=== PATIENT | male | born 1960 | race Caucasian/White ===

== ENCOUNTER 2016-08-10 04:37 | Inpatient (IN) | payer OTHER, SELFPAY ==
--- NOTE | ~2016-08-10 | CT24 ---
[facility] A Service of [facility] & [facility] RADIOLOGY TEXT RESULTS PATIENT: RITA PASTRANA LOCATION: [place] [id number] : [birth year] UNIT #: [id number] AGE: [address]: Rianna Sanchez MD SEX: M ORDER DR: [id number] [place] [id number] [facility]. [place], [place] [address] [id number] I MR#: [id number] Acc #: [id number] NAME: RITA PASTRANA : 1960 SEX: M STUDY DATE/TIME: 08/10/2016 4:50 UNIT: [facility] ROOM: [facility] STUDY DESCRIPTION: CT Angio Neck Stroke Attending Physician: Rianna Sanchez M.D. Ordering Physician: Huan Solano M.D. Primary Care Physician: Gabriel Aguero M.D. MEDICAL IMAGING REPORT This report is preliminary unless electronic signature is present EXAM CTA neck. FINDINGS Result text under order number [id number]. Please see this order for result text. Dictated by... Valentín Martinez M.D. THIS IS AN ELECTRONICALLY VERIFIED REPORT Valentín Martinez M.D. at 08/10/2016 4:41 PM REGINALDO/katharina TD: 08/10/2016 10:36 JOB #: [id number] MEDICAL IMAGING REPORT COPY
--- NOTE | ~2016-08-10 | CT72 ---
[facility] A Service of [facility] RADIOLOGY TEXT RESULTS PATIENT: RITA PASTRANA LOCATION: [facility] 317-01 : [birth year] UNIT #: [id number] AGE: [address]: Rianna Sanchez MD SEX: M ORDER DR: [id number] [place] [id number] [facility]. [place], [place] [address] [id number] I MR#: [id number] Acc #: [id number] NAME: RITA PASTRANA : 1960 SEX: M STUDY DATE/TIME: 08/10/2016 4:43 UNIT: [facility] ROOM: [facility] STUDY DESCRIPTION: CT Head Wo Contrast Stroke Attending Physician: Rianna Sanchez M.D. Ordering Physician: Huan Solano M.D. Primary Care Physician: Gabriel Aguero M.D. MEDICAL IMAGING REPORT This report is preliminary unless electronic signature is present EXAM CT head without IV contrast COMPARISON March 30, 2016 INDICATION 56-year-old male with left-sided weakness for 2 hours. History of hypertension. FINDINGS Mastoid air cells, middle ears and visualized paranasal sinuses are well-aerated. No acute fracture or suspicious osseous lesion. Minimal calcifications of the cavernous internal carotid arteries. Normal cerebral volume. No mass effect. No abnormal extraaxial fluid collection. No acute intracranial hemorrhage. No evidence of acute ischemia. There are chronic infarcts involving the cortex and the underlying white matter in the right frontal and parietal lobes. These are very small and focal in nature. IMPRESSION 1. No acute intracranial abnormality. Normal cerebral volume. 2. Evolved now chronic infarcts of the right frontal and parietal cortex, focal in nature. Dictated by... Gamal Chan M.D. THIS IS AN ELECTRONICALLY VERIFIED REPORT Gamal Chan M.D. at 08/15/2016 8:47 PM Natacha TD: 08/10/2016 09:38 [facility] A Service [facility] RADIOLOGY TEXT RESULTS PATIENT: RITA PASTRANA LOCATION: [facility] 317-[id number] [birth year] UNIT #: [id number] AGE: [address]: Rianna Sanchez MD SEX: M ORDER DR: JOB #: [id number] MEDICAL IMAGING REPORT COPY
--- NOTE | ~2016-08-10 | CT71 ---
[facility] A Service of [facility] & [facility] RADIOLOGY TEXT RESULTS PATIENT: RITA PASTRANA LOCATION: [address]16 : [birth year] UNIT #: [id number] AGE: [address]: Rianna Sanchez MD SEX: M ORDER DR: [id number] [facility] [address] [place], [place] [address] [id number] I MR#: [id number] Acc #: [id number] NAME: RITA PASTRANA : 1960 SEX: M STUDY DATE/TIME: 08/10/2016 11:09 UNIT: [facility] ROOM: [facility] STUDY DESCRIPTION: CT Head Wo Contrast Attending Physician: Rianna Sanchez M.D. Ordering Physician: Estephania Ugalde A.P.R.N. Primary Care Physician: Gabriel Aguero M.D. MEDICAL IMAGING REPORT This report is preliminary unless electronic signature is present EXAM CT head 08/10/2016 HISTORY Weakness left arm, leg discomfort, started 0200 hours today. Condition worsening, extremely restless, increased headache, increased confusion, combative, unable to lay still. TECHNIQUE CT head performed skull base through vertex without intravenous contrast. This CT exam was performed with one or more of the following radiation dose reduction techniques: automatic exposure control, adjustment of mA and/or kV according to patient size, and iterative reconstruction. FINDINGS Brainstem unremarkable. Cerebellum and cerebral hemispheres show normal overall jacques matter - white matter differentiation. There is no clear indication of acute cortical ischemia and there is no indication of hemorrhage. Focal area of encephalomalacic change in the anterior-superior right frontal lobe is stable and felt to reflect sequelae of remote vascular insult. Encephalomalacic change at the right paracentral parietal vertex felt to reflect old vascular insult. These changes are stable compared to earlier today. The midline structures are nondisplaced. The basal ganglia are intact. Ventricles, cisterns and sulci within normal limits of size and contour overall. Patient underwent CT angiography neck and head earlier today. See that study for further assessment. There is some residual contrast within the vascular structures. The intraorbital soft tissues unremarkable. The visualized paranasal sinuses and mastoid air cells are clear. No fracture. IMPRESSION 1. No change in appearance of brain from study performed earlier today. No clearly acute abnormality is seen. No hemorrhage. No clear STS. [facility] A Service of [facility] RADIOLOGY TEXT RESULTS PATIENT: RITA PASTRANA LOCATION: [address] : [birth year] UNIT #: [id number] AGE: [address]: Rianna Sanchez MD SEX: M ORDER DR: indication of acute cortical ischemia. Records in DR PACS System indicate patient scheduled for MRI brain. Please see that study for further assessment. 2. Areas of chronic ischemic change in the right frontal and parietal lobes as described above. No change from prior examination. Dictated by... Andreas Kohli M.D. THIS IS AN ELECTRONICALLY VERIFIED REPORT Andreas Kohli M.D. at 08/11/2016 11:43 AM TROY/dayana TD: 08/10/2016 14:14 JOB #: [id number] MEDICAL IMAGING REPORT COPY
--- NOTE | ~2016-08-10 | MR18 ---
[facility] A Service of [facility] RADIOLOGY TEXT RESULTS PATIENT: RITA PASTRANA LOCATION: [facility] 317-01 : [birth year] UNIT #: [id number] AGE: [address]: Rianna Sanchez MD SEX: M ORDER DR: [id number] [facility] [address] [place], [place] [address] [id number] I MR#: [id number] Acc #: [id number] NAME: RITA PASTRANA : 1960 SEX: M STUDY DATE/TIME: 08/11/2016 19:42 UNIT: [facility] ROOM: [facility] STUDY DESCRIPTION: MR Brain Wo Contrast Attending Physician: Rianna Sanchez M.D. Ordering Physician: Adama Langston M.D. Primary Care Physician: Gabriel Aguero M.D. MRI CENTER REPORT This report is preliminary unless electronic signature is present. EXAM Limited brain MRI. DATE OF EXAM 08/11/2016 HISTORY Claustrophobia. Left arm and leg weakness. COMPARISON Head CT same date. FINDINGS Limited study with only diffusion images. There are areas of ischemia in the right frontal cortex, somewhat patchy, possibly indicating small emboli, and possibly indicating a watershed zone infarct. These are nonhemorrhagic and there is minimal local mass effect. These correspond fairly well to the abnormalities seen on CT. There is no contralateral acute ischemia or cerebellar abnormality. IMPRESSION Limited study shows what are grossly nonhemorrhagic, small areas of acute ischemia in the right frontal region and a lesser degree in the right parietal subcortical region. They may simply be watershed zone infarcts, but could be small peripheral emboli. They are nonhemorrhagic and there is no contralateral abnormality. They correspond well to the findings on CT. Dictated by... Adrián Chen M.D. [facility] A Service of [facility] RADIOLOGY TEXT RESULTS PATIENT: RITA PASTRANA LOCATION: [facility] 317-01 : [birth year] UNIT #: [id number] AGE: [address]: Rianna Sanchez MD SEX: M ORDER DR: THIS IS AN ELECTRONICALLY VERIFIED REPORT Adrián Chen M.D. at 08/15/2016 4:33 PM LACY/mandi TD: 08/12/2016 00:36 JOB #: [id number] MRI CENTER REPORT COPY
--- NOTE | ~2016-08-10 | CO ---
Unit #: [id number] #: [id number] Patient: RITA PASTRANA [id number] [facility] [address] [place] [address] [facility]. [place], [place] [address] [id number] I MR#: [id number] NAME: RITA PASTRANA ROOM: [facility] Age: 56 Sex: M Admission Date: 08/10/2016 : 1960 Attending Physician: Rianna Sanchez M.D. Primary Care Physician: Gabriel Aguero M.D. Consultation Date: 08/10/2016 CONSULTATION REPORT CONSULTING PHYSICIAN Dr. Solano with code stroke protocol. PATIENT IDENTIFICATION This is a 56-year-old, right-handed, male evaluated in ICU room 16, at [facility]. SOURCE OF INFORMATION Obtained from the patient as well as the medical record. HISTORY OF PRESENT ILLNESS This is a 56-year-old, right-handed, male with a past medical history of CAD with history of myocardial infarction, history of CVA, hypertension, and hyperlipidemia as well as tobacco use who presented to [facility] with report of left-sided weakness and pain with sudden onset around 2:30 in the morning. Patient apparently was having trouble sleeping. He was awake and noticed suddenly that his left arm and left leg were numb and he was having difficulty using his arm and leg. He presented about an hour and a half later at [facility] for further evaluation and a code stroke was initiated and the patient received IV alteplase for possible acute stroke. Patient was seen via telemedicine by Dr. Langston and he discussed the case with Dr. Solano at the time of acute treatment. Patient has been seen multiple times today by our service. Initially, this morning, his NIH appeared to be higher with NIH of 5 compared to a NIH of 2 done by nursing at shift change. Thus, we sent the patient for a stat CT of the head, which was negative for any acute intracranial abnormality. The patient completed his alteplase with no complications. He has complained of a headache since he has been here. He states, however, around the time he went down for a CT scan, he became very anxious. He, upon return, continued to be anxious and somewhat combative and has been that way since he became more awake this morning. Dr. Higgins has been consulted and he has been put on p.r.n. Ativan and SEROquel by the hospitalist physician. We have attempted a MRI of the brain unsuccessfully with repeated doses of sedation. The patient is severely claustrophobic and becomes combative when attempting MR imaging. His symptoms have improved somewhat though he still has some mild left-sided deficit and mild facial asymmetry. He has dysarthria currently, but is also sedated. It improves whenever he is not sedated. Initial CT angiogram of the head and neck done on 08/10/16 whenever he came to the ER shows sadz-bu-fcboujoh vessel wall irregularity prominent in the anterior cerebral arteries. This could reflect either atherosclerotic disease or vasospasm. No evidence of carotid bifurcation disease. No evidence of aneurysm or major branch vessel occlusion intracranially. Imaging has been reviewed and discussed with Dr. Langston Unit #: [id number] #: [id number] Patient: RITA PASTRANA at the time of evaluation. Patient is unable to provide much in the way of review of systems currently as he is sedated. He complained earlier of a headache. Since he has been here, he has had repeat imaging since then and it was negative for any bleeding. Otherwise, pertinent positives for review of systems include left-sided numbness and weakness and dysarthria. He denies any chest pain, shortness of air, palpitations, nausea, vomiting, abdominal pain, bruising or bleeding, vision changes, swallowing difficulty, aphasia, loss of consciousness or loss of awareness, or any seizure activity. PAST MEDICAL HISTORY 1. CAD with prior history of myocardial infarction. He had a cardiac catheterization done in 2013 that was done for recurrent chest pain. He was diagnosed with uncontrolled hypertension, noncardiac chest pain, and angiographically normal coronary arteries and normal left ventricular systolic function. He underwent a cath on October 21, 2013, at that time. He was seen by neurology at that time for abnormal head CT; however, it was felt to be artifact. 2. Injury to the left ankle requiring ORIF x2. 3. Hyperlipidemia. 4. COPD. 5. Medication noncompliance. 6. Left ventricular ejection fraction of 50% to 55% on cardiac catheterization in 2012 and the same in 2013 on his cardiac cath. 7. Tobacco use. 8. CVA in March of 2016. He does have chronic infarcts seen in the right cortex on CT imaging upon arrival that appear chronic. FAMILY HISTORY Positive for CAD and diabetes. SOCIAL HISTORY He lives with his . He smokes one pack per day of tobacco. No reported alcohol use or illicit drug use. He uses a cane at baseline according to the patient, but is independent otherwise with his ADLs. MEDICATIONS Home medications have not been fully reconciled at this time. ALLERGIES No known drug allergies. REVIEW OF SYSTEMS Twelve-point review of systems attempted. Pertinent positives are as above, otherwise negative. PHYSICAL EXAMINATION VITAL SIGNS: Temperature 98 (he has been afebrile), pulse 77, respirations 18, blood pressure 142/92 (he is on a Cardene drip), and oxygen saturation 93%. He was placed on a Cardene drip in the ED due to elevated blood pressure greater than 180/105 after receiving alteplase. Oxygen saturation 96% on 2 liters nasal cannula. Height 63 inches, weight 248 pounds, and BMI 31. NEUROLOGIC: Patient initially this morning had a NIH of 5. When I evaluated him, he was drowsy and had dysarthria and had a left arm and left leg droop. He has no sensory abnormalities on exam. Very mild left-sided weakness. Had decreased level of consciousness; however, now he is sedated so obviously has an affected level of consciousness. He Unit #: [id number] #: [id number] Patient: RITA PASTRANA seems stronger. Facial droop is less prominent, very mild asymmetry. He becomes combative, agitated, and restless throughout the day and has required multiple anxiety/sedating medications. He is being seen by psychiatry. He does follow commands when he is awake and stimulated, but he is restless. His speech is dysarthric, but he is sedated currently. When he is more awake, he is less dysarthric. He has no aphasia or apraxia. CRANIAL NERVES: He demonstrates full chao of vision. Eyes are conjugate without ptosis or nystagmus. Extraocular movements are intact. Sensation of the face and scalp is intact. Strength of muscles of facial expression does reveal mild asymmetry of the left side of the face with mildly flattened nasal labial fold. Hearing is intact to conversation. Tongue is midline. Uvula is midline. Palate elevation is normal. Head turning and shoulder shrug are unremarkable. NECK: Supple. MOTOR: As discussed above. SENSORY: As discussed above. No deficits. He can differentiate between soft touch and pinprick sensation and has no extinction. Gait and Romberg deferred. COORDINATION: He has no past-pointing. No cerebellar signs. DIAGNOSTIC STUDIES IMAGING: Initial CT of the head without contrast on 08/10/16: No acute intracranial abnormality. Normal cerebral volume. Evolved now chronic infarcts of the right frontal and parietal cortex, focal in nature. CT angiogram of the head and neck as discussed above. Repeat CT of the head without contrast on 08/10/16 after alteplase show no change in appearance of brain from study performed earlier today. No clearly acute abnormality seen. No hemorrhage. No clear indication of acute cortical ischemia. Areas of chronic ischemic changes in the right frontal and parietal lobes as described in the full body of the report. No change from prior exam. Chest x-ray, portable single view on 08/10/16: No active disease. CARDIOVASCULAR: EKG done in the ED: Normal sinus rhythm. Ventricular rate of 96 beats per minute. LABORATORY: Initial CBC unremarkable. Troponin less than 0.05. BMP unremarkable, other than a glucose of 111. PT 10, INR 1, and PTT 25.5. IMPRESSION 1. Clinical concern for possible new ischemic CVA, though concern for change in mental status and must then consider other differential diagnoses. Must consider MARIO infarct versus subcortical infarct. Consider non-neurologic etiologies for mental status changes; however, the patient did present with focal findings. 2. History of CVA. 3. Hypertension. Continue Cardene drip to maintain blood pressure less than 180/105 after receiving IV alteplase in our ED. 4. MARIO atherosclerosis. 5. Mental status changes/anxiety. Psychiatry following. Nothing currently to suggest CLINICAL TRANSFORMATION SPECIALIST infectious etiology or seizure activity. 6. Medication noncompliance. 7. History of CAD. Unit #: [id number] #: [id number] Patient: RITA PASTRANA Patient was unable to successfully complete MRI imaging despite repeated doses of Ativan. He is being monitored closely in the ICU. He is on Cardene drip and stroke workup has been initiated. A repeat CT of the head in 24 hours post alteplase, early tomorrow morning, and, at that time, we will start the patient on antiplatelet therapy pending negative CT scan and will attempt MRI if possible. May have to consider large bore MRI at another facility. Patient discussed with Dr. Langston who has seen the patient as well today and he agrees with above. Please call for any questions or issues. We thank you very much for allowing us to assist in the care of this patient. Dictated by... Estephania Ugalde A.P.R.N. for Radha Dewey/kervin TD: 08/11/2016 11:58 JOB #: [id number] CONSULTATION REPORT X Estephania Ugalde APRN X CONSULTATION REPORT
--- NOTE | ~2016-08-10 | DS ---
Unit #: [id number] #: [id number] Patient: RITA PASTRANA [id number] [address] [place], [place] [address] [id number] I MR#: [id number] NAME: RITA PASTRANA ROOM: 317 Age: 56 Sex: M Admission Date: 08/10/2016 : 1960 Discharge Date: 08/12/2016 Attending Physician: Rianna Sanchez M.D. Primary Care Physician: Gabriel Aguero M.D. DISCHARGE SUMMARY REASON FOR ADMISSION Left lower extremity weakness, left upper extremity weakness/concern for possible underlying CVA. HISTORY OF PRESENT ILLNESS/HOSPITAL COURSE The patient is a very pleasant 56-year-old male with prior hospital admission in 2013 with questionable compliance with some of his medications secondary to poor outpatient followup in regard to primary care. Presented after he became concerned for possible underlying CVA while he was lying down at home. He was initially evaluated in the emergency room. After review and discussion with neurology service, the patient received TPA. Subsequently, secondary to TPA he was admitted to the ICU and subsequently was placed on routine TPA protocol. Consultation was placed to neurology service who continued to follow the patient through his hospital course, as well as Dr. Marroquin for intensive care. The patient underwent appropriate speech therapy evaluation, which was otherwise unremarkable. He did have accelerated hypertension on day of admission. He was placed on a Cardene drip with appropriate parameters. On day one of admission he also demonstrated increased anxiety, as well as anger issues, and we did consult Dr. Higgins of psychiatry service. He was given Ativan, as well as Haldol, on several occasions. He does have a prior history of underlying generalized anxiety. We attempted initially MRI of brain. Unfortunately, secondary to claustrophobia, he was unable to complete. We subsequently gave the patient appropriate sedative medications, and he underwent an MRI brain on 08/11/2016, which did reveal multiple ischemic areas. He did have CTA of head without contrast, which was otherwise unremarkable. At the present time physical and occupational therapy services have both seen and evaluated the patient. He does not have any acute motor deficits at the present time. He did undergo a MARGARETH by Dr. Beltran of cardiology service, which did reveal rxbn-ia-xmpzbkdt amount of atherosclerosis in the aorta. No PFO. No vegetations were noted. Ejection fraction was noted to be 60%. At this point in time he is stable to be discharged home. He tells me that he will be following up with Dr. Libra Crawley at [facility] Unit #: [id number] #: [id number] Patient: RITA PASTRANA on August 15, 2016. He has had elevated blood pressure through his hospital course here. He has been started on several blood pressure medications, and I have asked him to follow up with his PCP, not only for blood pressure management, but as well as for appropriate hospital followup. After review of MRI, as well as history, decision has been made for Lovenox bridge to therapeutic Coumadin. He will be given a prescription for Coumadin 5 mg on a daily basis. I have given a prescription for Lovenox 100 mg subcu b.i.d. Will have home health service follow him at time of discharge as well. In regard to his generalized anxiety, as well as likely noncompliance issues, I have asked him to try to follow up on a more often basis with his primary care physician and to discuss the possibility of starting on antianxiety/antidepressant medications, which may be resumed and/or started as an outpatient. At the present time, the time of discharge, he is very cooperative. He states that he will try his best moving forward. DIAGNOSTIC STUDIES LABORATORY STUDIES AT TIME OF DISCHARGE: LDL 120, HDL 38, total cholesterol 186. Hemoglobin is 16.2. Creatinine level is normal. TSH was assessed at 4.68 this hospital admission. Hemoglobin A1C was 5.5%. FINAL DISCHARGE DIAGNOSES 1. Acute cerebrovascular accident. 2. Left upper and lower extremity weakness. Deficits now resolving. 3. Status post tissue plasminogen activator administration in the emergency room. 4. Accelerated hypertension. 5. History of noncompliance. 6. Hyperlipidemia. 7. Vitamin B12 deficiency with B12 level of 176 this hospital admission. 8. Prior history of gastroesophageal reflux disease. FINAL DISCHARGE MEDICATIONS 1. Norvasc 10 mg p.o. daily. 2. Lopressor 25 mg p.o. b.i.d. 3. Lipitor 40 mg p.o. q.h.s. 4. Lisinopril 20 mg p.o. daily. 5. Protonix 40 mg p.o. daily. 6. Slek-nhx-gzzljwl sublingual vitamin B12 - 2,000 mcg p.o. daily. 7. Coumadin 5 mg p.o. daily. 8. Lovenox 100 mg subcu b.i.d. x5 days. Discontinue Lovenox when INR is greater than 2. Home health services to check PT-INR on a q.48 hour basis. DISCHARGE CONDITION Stable. DISCHARGE DISPOSITION Home. FOLLOW UP Follow up with primary care physician as detailed above. NOTE: Time - 55 minutes. Unit #: [id number] #: [id number] Patient: RITA PASTRANA Dictated by... Radha Shanks/luiz TD: 08/12/2016 11:51 JOB #: [id number] DISCHARGE SUMMARY X Rianna Sanchez MD X DISCHARGE SUMMARY
--- NOTE | ~2016-08-10 | EKG ---
PATIENT: RITA PASTRANA UNIT #: [id number] Ventricular Rate: 96 BPM Atrial Rate: 96 BPM P-R Interval: 160 ms QRS Duration: 96 ms Q-T Interval: 388 ms QTC Calculation(Bezet): 490 ms P [place]: 63 degrees Calculated R [place]: 48 degrees Calculated T [place]: 68 degrees Diagnosis Line: Normal sinus rhythm Diagnosis Line: Nonspecific T wave abnormality Diagnosis Line: Prolonged QT Diagnosis Line: Abnormal ECG Diagnosis Line: When compared with ECG of 27-APR-2016 13:06, Diagnosis Line: Vent. rate has increased BY 36 BPM Diagnosis Line: QT has lengthened Diagnosis Line: Confirmed by NELLY CALDWELL MD ([id number]) on 08/11/2016 Diagnosis Line: 11:15:20 AM INTERPRETING MD: JAVI GARZA
--- NOTE | ~2016-08-10 | CR72 ---
[facility] A Service of [facility] & [facility] RADIOLOGY TEXT RESULTS PATIENT: RITA PASTRANA LOCATION: [facility] 317- : [birth year] UNIT #: [id number] AGE: [address]: Rianna Sanchez MD SEX: M ORDER DR: [id number] [facility] [address] [facility]. [place], [place] [address] [id number] I MR#: [id number] Acc #: [id number] NAME: RITA PASTRANA : 1960 SEX: M STUDY DATE/TIME: 08/12/2016 5:23 UNIT: [address] ROOM: [facility] STUDY DESCRIPTION: CR Chest Single View Portable Attending Physician: Rianna Sanchez M.D. Ordering Physician: Erik Marroquin M.D. Primary Care Physician: Gabriel Aguero M.D. MEDICAL IMAGING REPORT This report is preliminary unless electronic signature is present EXAM AP portable chest, 08/12/2016 at 05:23 HISTORY 56-year-old male with left side chest pain, left arm and left leg pain. COPD. Symptoms began 08/10/2016. COMPARISON AP portable chest, 08/11/2016 at 05:21 FINDINGS Left costophrenic angle is not completely included in the imaging field of view. No acute airspace disease is identified. Heart size is within normal limits. No pleural effusion or pneumothorax is evident. No acute osseous abnormality. IMPRESSION No acute chest findings. Left costophrenic angle not completely included in the field of view. Dictated by... Rachael Spangler M.D. THIS IS AN ELECTRONICALLY VERIFIED REPORT Rachael Spangler M.D. at 08/14/2016 7:02 PM YAQUELIN/josé TD: 08/12/2016 09:57 JOB #: [id number] MEDICAL IMAGING REPORT COPY
--- NOTE | ~2016-08-10 | CO ---
Unit #: [id number] #: [id number] Patient: RITA PASTRANA [id number] [facility] [address] [facility]. [place], [place] [address] [id number] I MR#: [id number] NAME: RITA PASTRANA ROOM: 317 Age: 56 Sex: M Admission Date: 08/10/2016 : 1960 Attending Physician: Rianna Sanchez M.D. Primary Care Physician: Gabriel Aguero M.D. Consultation Date: 08/10/2016 CONSULTATION REPORT REASON FOR CONSULTATION Confusion, agitation. HISTORY OF PRESENT ILLNESS Mr. Dela Cruz is a 56-year-old male, seen on 08/10/2016 in ICU bed 16 at [facility] due to confusion and agitation. The patient became extremely anxious and agitated and was given Ativan 0.5 mg IV. The patient was admitted with symptoms of stroke. The patient had left lower extremity weakness and pain. The patient was given tPA. The patient was evaluated by Neurology Services. The patient was lying in bed, seems restless, anxious, confused, unable to give any reliable information. The patient's was at the bedside that she reported the patient has a history of anxiety and depression, but denied any treatment. The patient was unable to give any reliable information. PAST PSYCHIATRIC HISTORY Remarkable for history of anxiety and depression. No history of any treatment. PAST MEDICAL HISTORY History of cardiac disease in 2013, hypertension, noncompliant, history of TIA/CVA. MEDICATIONS The patient is currently on Lipitor, Protonix, Plavix, Norvasc, Lopressor, Ativan p.r.n., NovoLog. Please refer to H and P for detail. FAMILY HISTORY AND SOCIAL HISTORY The patient has a good support system from his . No history of any abuse. History of alcohol abuse, but none recently. REVIEW OF SYSTEMS Complete review of systems is unremarkable except for confusion and agitation. MENTAL STATUS EXAMINATION General appearance; the patient dressed in hospital attire, lying comfortably, somewhat anxious in ICU bed 16. Attention span and concentration, poor. Speech, disorganized. Orientation, unable to assess. Mood and affect, labile. Thought process and thought content, disorganized. Recent and remote memory, poor. Language, unable to assess. Fund of knowledge, unable to assess. Insight and judgment, impaired. Unit #: [id number] #: [id number] Patient: RITA PASTRANA DIAGNOSES Psychiatric: Delirium, F05; agoraphobia with panic disorder, F40.01. Secondary diagnosis: Deferred. Medical diagnosis: Please refer to H and P. Stressors: Psychosocial stressor. ASSESSMENT/PLAN 1. Supportive psychotherapy and psychoeducation provided to the patient's family. The patient is unable to comprehend much. 2. I advised to continue with p.r.n. Ativan at this time and if needed, consider alternative medication. We will continue to follow. Please feel free to call if any questions telephone #[phone]. Dictated by... Radha Dowling/lauro TD: 08/12/2016 06:57 JOB #: [id number] CONSULTATION REPORT X Barron Higgins MD X CONSULTATION REPORT
--- NOTE | ~2016-08-10 | CR72 ---
[facility] A Service of [facility] & [facility] RADIOLOGY TEXT RESULTS PATIENT: RITA PASTRANA LOCATION: [address]16 : [birth year] UNIT #: [id number] AGE: [address]: Rianna Sanchez MD SEX: M ORDER DR: [id number] [facility] [address] [facility]. [place], [place] [address] [id number] I MR#: [id number] Acc #: [id number] NAME: RITA PASTRANA : 1960 SEX: M STUDY DATE/TIME: 08/11/2016 5:21 UNIT: [facility] ROOM: [facility] STUDY DESCRIPTION: CR Chest Single View Portable Attending Physician: Rianna Sanchez M.D. Ordering Physician: Erik Marroquin M.D. Primary Care Physician: Gabriel Aguero M.D. MEDICAL IMAGING REPORT This report is preliminary unless electronic signature is present EXAM Portable chest HISTORY COPD, left arm and chest pain since 08/10/2016. COMPARISON 08/10/2016. FINDINGS Portable view of the chest demonstrates improved lung volumes. No focal airspace disease or consolidation. No effusions. Heart size within normal limits. Mild prominence of the pulmonary interstitium could represent background fibrosis though a component of interstitial edema not excluded as this appears improved from the 08/10/2016 study. Of course, this could be on the basis of improved lung volumes. Diffuse aortic atherosclerotic changes. No invasive tubes or lines. No visible pneumothorax. Dictated by... Virginia Roberto M.D. THIS IS AN ELECTRONICALLY VERIFIED REPORT Virginia Roberto M.D. at 08/11/2016 8:10 AM MATT/attila TD: 08/11/2016 07:52 JOB #: [id number] MEDICAL IMAGING REPORT COPY
--- NOTE | ~2016-08-10 | CR72 ---
[facility] A Service of [facility] & [facility] RADIOLOGY TEXT RESULTS PATIENT: RITA PASTRANA LOCATION: [address]-16 : [birth year] UNIT #: [id number] AGE: [address]: Rianna Sanchez MD SEX: M ORDER DR: [id number] [facility] [address] [facility]. [place], [place] [address] [id number] I MR#: [id number] Acc #: [id number] NAME: RITA PASTRANA : 1960 SEX: M STUDY DATE/TIME: 08/10/2016 12:16 UNIT: [facility] ROOM: [facility] STUDY DESCRIPTION: CR Chest Single View Portable Attending Physician: Rianna Sanchez M.D. Ordering Physician: Adama Langston M.D. Primary Care Physician: Gabriel Aguero M.D. MEDICAL IMAGING REPORT This report is preliminary unless electronic signature is present EXAM Portable chest, 08/10 INDICATION Left arm and chest pain today. FINDINGS AP portable chest is compared with 01/19/2014. Cardiac and mediastinal contours are normal. Lungs are clear. No pneumothorax. IMPRESSION No active disease. Dictated by... Valentín Bell Jr., M.D. THIS IS AN ELECTRONICALLY VERIFIED REPORT Valentín Bell Jr., M.D. at 08/10/2016 2:59 PM MILLA/josé TD: 08/10/2016 14:54 JOB #: [id number] MEDICAL IMAGING REPORT COPY
--- NOTE | ~2016-08-10 | HP ---
Unit #: [id number] #: [id number] Patient: RITA PASTRANA [id number] [address] [place], [place] [address] [id number] I MR#: [id number] NAME: RITA PASTRANA ROOM: [facility] Age: 56 Sex: M Admission Date: 08/10/2016 : 1960 Attending Physician: Rianna Sanchez M.D. Primary Care Physician: Gabriel Aguero M.D. HISTORY AND PHYSICAL REASON FOR ADMISSION Left lower extremity weakness, left upper extremity weakness/pain; patient concerned for possible CVA. HISTORY OF PRESENT ILLNESS The patient is a 56-year-old male with a prior hospital admission in 2013 secondary to chest pain and underwent cardiac catheterization at that time. Per report, he is relatively noncompliant with his medications; however, he states at the present time he has been taking them as prescribed. Presented after he noticed an approximately 1-hour history of left lower extremity and left arm weakness and/or tingling. He presented to the emergency room within the appropriate window for TPA. He was evaluated by neurology service and received TPA. While in the emergency room his initial CT head was negative, but concerning for his clinical picture TPA was administered. The patient is currently being evaluated in the ICU. At the present time he states that he feels well. He is having return of sensation of his left side. He states that he feels much better. A repeat CT head was ordered by neurology secondary to decreased mentation, as well as grogginess. That repeat CT is currently pending. MRI was attempted; however, the patient became quite agitated and claustrophobic. He stated that felt very angry and he refused. Initial laboratory studies performed in the emergency department include a BMP, which was relatively unremarkable. Hepatitic panel was also negative. CBC showed a hemoglobin 15.4. PAST MEDICAL HISTORY 1. Cardiac disease with prior history of myocardial infarction and prior history of cardiac catheterization in 2013. Negative per report. 2. Hypertension, noncompliant. 3. Prior history of TIA/CVA, I believe, March 2016. PAST SURGICAL HISTORY Catheterization. CURRENT HOME MEDICATIONS List is being verified, including blood pressure medications. The patient states he is taking them; however, previous records indicate that he has history of noncompliance FAMILY HISTORY Unit #: [id number] #: [id number] Patient: RITA PASTRANA Positive for coronary artery disease, diabetes. SOCIAL HISTORY Smokes 1 pack of cigarettes per day. No alcohol use. He denies any illicit drug use. REVIEW OF SYSTEMS Please see HPI. A 12-point review, otherwise, is negative except for those positively noted in the HPI. PHYSICAL EXAMINATION VITAL SIGNS: Temperature 98, pulse 77, respiratory rate 18, blood pressure 142/92. GENERAL APPEARANCE: The patient is a 56-year-old male sitting on the side of the bed comfortably, no acute distress. HEAD EXAM: Atraumatic, normocephalic. EAR EXAM: Tympanic membranes do not reveal any erythema or injection. NECK: Supple. CVS EXAM: S1, S2 were audible without murmur. RESPIRATORY EXAM: Clear with prolonged expiratory. Coarse breath sounds noted. GI/ABDOMEN: Distention noted but nontender. LOWER EXTREMITY EXAM: No evidence of any lower extremity edema. NEUROLOGIC: The patient is alert and oriented x3. On cranial nerve exam, as well as neurological exam the patient is slightly weaker on the left side as compared to the right. DIAGNOSTIC STUDIES LABORATORY STUDIES: As stated above. IMAGING: Head CT - No acute process. INITIAL ADMISSION DIAGNOSES 1. Probable CVA with resultant left-sided weakness/concern for right hemispheric subcortical stroke. 2. Status post TPA/alteplase in emergency room. 3. Hypertensive urgency, currently on Cardene drip. 4. Prior history of CVA, March 2016. 5. Prior history of medication noncompliance. PLAN 1. Admission ICU. 2. Neurology consultation. 3. Stroke protocol. 4. TPA protocol. 5. Repeat CT currently pending. 6. Patient does have increased agitation, as well as anxiety. 7. Nicotine patch will used, as well as Ativan administered. 8. The patient may ultimately require psychiatric evaluation. 9. Urine tox screen will also be administered. 10. Speech therapy to evaluate swallowing mechanism. 11. Further hospital course to follow. Dictated by Rianna Sanchez M.D. Unit #: [id number] #: [id number] Patient: RITA PASTRANA ISN/db TD: 08/10/2016 12:40 JOB #: [id number] HISTORY AND PHYSICAL X Rianna Sanchez MD HISTORY AND PHYSICAL
--- NOTE | ~2016-08-10 | CT71 ---
[facility] A Service of [facility] & [facility] RADIOLOGY TEXT RESULTS PATIENT: RITA PASTRANA LOCATION: [facility] 317-01 : [birth year] UNIT #: [id number] AGE: [address]: Rianna Sanchez MD SEX: M ORDER DR: [id number] [facility] [address] [facility]. [place], [place] [address] [id number] I MR#: [id number] Acc #: [id number] NAME: RITA PASTRANA : 1960 SEX: M STUDY DATE/TIME: 08/11/2016 4:50 UNIT: [id number] ROOM: [facility] STUDY DESCRIPTION: CT Head Wo Contrast Attending Physician: Rianna Sanchez M.D. Ordering Physician: Adama Langston M.D. Primary Care Physician: Gabriel Aguero M.D. MEDICAL IMAGING REPORT This report is preliminary unless electronic signature is present EXAM CT head without IV contrast COMPARISON August 10, 2016. 56-year-old male with left-sided weakness since yesterday, now post TPA. Follow up after TPA. FINDINGS Minimal mucosal thickening of the left maxillary sinus and ethmoid air cells. No acute fractures or suspicious osseous lesions. Normal cerebral volume. No mass effect. No acute intracranial hemorrhage. Stable areas of chronic ischemia in the right frontoparietal cortex and within the anterior right lateral frontal cortex. No evidence of acute ischemia. IMPRESSION 1. No acute intracranial abnormality. No change from head CT of yesterday. 2. Stable chronic ischemic changes in the right frontal and parietal lobes. Dictated by... Gamal Chan M.D. THIS IS AN ELECTRONICALLY VERIFIED REPORT Gamal Chan M.D. at 08/16/2016 7:39 AM Adenike TD: 08/11/2016 06:59 JOB #: [id number] MEDICAL IMAGING REPORT COPY
--- NOTE | ~2016-08-10 | A ---
[facility] Nutrition Therapy DATE: 08/11/16 Patient: RITA PASTRANA Physician: HAM [facility] [address] Room/Bed: [address], Zip: [place] [address] Admit Date: 08/10/16 Date of : [birth year] Height: 6 3 Weight: 239 108.5 NUTRITIONAL ASSESSMENT: REASON: Stroke protocol consult 56 yo male admitted for stroke PMH: OR, cardiac cath, HTN, CVA/TIA Anthropometrics: Ht: 6'1" Wt: 108.5 kg BMI: 31.6 Diet: Heart healthy Assessment: Chart reviewed, events noted. Pt admitted for stroke, and RD consulted for stroke protocol. Pt has passed EQUITY DIRECTOR evaluation and has been placed on a heart healthy diet. RD spoke with the pt at bedside. Pt had recently consumed breakfast, which he ate about 75% of. Pt reports having a good appetite, and no recent weight loss. RD explained heart healthy diet to the pt, and encouraged him to follow the diet after discharge. Pt denied having any nutritional questions/ concerns. RD to remain available. Recommendations: 1. Pt to follow a heart healthy diet as instructed by RD. Pt is not at nutritional risk at this time. Please consult RD for any further nutritional needs. Respectfully, SANDRA FOLEY RD, LD Food and Nutritional Services [facility] cc: client file
--- NOTE | ~2016-08-10 | CT18 ---
[facility] A Service of [facility] & [facility] RADIOLOGY TEXT RESULTS PATIENT: RITA PASTRANA LOCATION: [address]-16 : [birth year] UNIT #: [id number] AGE: [address]: Rianna Sanchez MD SEX: M ORDER DR: [id number] [facility] [address] [facility] [place], [place] [address] [id number] I MR#: [id number] Acc #: [id number] NAME: RITA PASTRANA : 1960 SEX: M STUDY DATE/TIME: 08/10/2016 4:50 UNIT: [facility] ROOM: [facility] STUDY DESCRIPTION: CT Angio Head Stroke Attending Physician: Rianna Sanchez M.D. Ordering Physician: Huan Solano M.D. Primary Care Physician: Gabriel Aguero M.D. MEDICAL IMAGING REPORT This report is preliminary unless electronic signature is present EXAM CT scan head and neck with contrast with carotid CT angiography. HISTORY Left-sided weakness for the past 2 hours with history of chronic hypertension. TECHNIQUE Axial imaging was obtained from the mid mediastinum to the top of head with contrast. 100 mL of Isovue was used. CT angiography was performed with thick sliding MIPs, curved planar reformats and 3-D volumetric imaging with surface shaded and volume shaded display. This CT exam was performed with one or more of the following radiation dose reduction techniques: automatic exposure control, adjustment of mA and/or kV according to patient size, and iterative reconstruction. FINDINGS Extravascular structures are remarkable for emphysematous changes in the upper lung chao. There is minimal chronic inflammatory sinus disease. The CT angiographic study shows wide patency of the great vessels off of the aortic arch. Both vertebral arteries are widely patent and approximately the same size and codominant distally with widely patent basilar artery. The carotids are widely patent. There is no evidence of carotid bifurcation, atherosclerotic disease or stenosis by NASCET criteria. The distal carotids are widely patent. The intracranial vessels, there is mild to moderate small vessel atherosclerotic disease noted with mild vessel wall irregularity seen most prominent in the anterior cerebral arteries. This could reflect either atherosclerosis or potentially vasculitis in the appropriate clinical setting. No major branch vessel occlusive disease is seen and no STS. [facility] A Service of [facility] & [facility] RADIOLOGY TEXT RESULTS PATIENT: RITA PASTRANA LOCATION: [facility]3 C[facility]3-16 : 62 UNIT #: [id number] AGE: [address]: Rianna Sanchez MD SEX: M ORDER DR: aneurysms are noted. As a normal variant there is origin of the left posterior cerebral artery. IMPRESSION 1. Mild to moderate vessel wall irregularity prominently in the anterior cerebral arteries. This could reflect either atherosclerotic disease or vasospasm. 2. No evidence of carotid bifurcation disease. 3. No evidence of aneurysm or major branch vessel occlusion intracranially. Dictated by... Valentín Martinez M.D. THIS IS AN ELECTRONICALLY VERIFIED REPORT Valentín Martinez M.D. at 08/10/2016 4:41 PM Rocky TD: 08/10/2016 10:30 JOB #: [id number] MEDICAL IMAGING REPORT COPY
--- NOTE | ~2016-08-10 | CO ---
Unit #: [id number] #: [id number] Patient: RITA PASTRANA [id number] [address] [place], [place] [address] [id number] I MR#: [id number] NAME: RITA PASTRANA ROOM: 317 Age: 56 Sex: M Admission Date: 08/10/2016 : 1960 Attending Physician: Rianna Sanchez M.D. Primary Care Physician: Gabriel Aguero M.D. Consultation Date: 08/10/2016 CONSULTATION REPORT REFERRING PHYSICIAN Dr. Sanchez. HISTORY OF PRESENT ILLNESS A 56-year-old gentleman with history of new onset left-sided weakness at home. The patient presented to the emergency room, quickly he received tPA and started having improvement in his slurred speech and left-sided weakness. By the time I saw him, the patient had almost equal strength in bilateral upper and lower left extremities. The patient was having severe hypertension when presented, so he was also agitated and confused. The patient was in bigeminies with multiple PVCs, therefore, the patient was admitted to the unit for status post tPA and amlodipine drip for hypertensive emergency. The review of systems is positive for confusion, agitation, left-sided weakness. The patient was unable to do MRI due to agitation and claustrophobia. CTA of the neck showed no stenosis of the either of the carotids, the basilar artery, the vertebral arteries, or what could be seen from the intracranial branches. We have been asked to see for ICU consultation. REVIEW OF SYSTEMS Negative except as per the history of present illness. PAST MEDICAL HISTORY Significant for coronary artery disease with history of myocardial infarction in 2013. At that time, he had uncontrolled hypertension. He did not have a stent placed. The patient had open reduction and internal fixation of the left ankle x2, hyperlipidemia, history of medication non-compliance, left ventricular ejection fraction of 50% to 55%, history of CVA in 03/2016. FAMILY HISTORY Significant for heart disease and diabetes. The history is partly obtained from the chart as the patient is unable to give us a very clear history. MEDICATIONS Preliminary medication reconciliation is significant for hydrochlorothiazide 25 mg daily, Coreg 12.5 b.i.d., lisinopril 40 mg q.h.s., nitroglycerin 0.5 p.r.n., aspirin 81 mg daily, and Lipitor 40 mg q.p.m. SOCIAL HISTORY The patient lives with his . The patient smokes one pack of Unit #: [id number] #: [id number] Patient: RITA PASTRANA cigarettes a day. No alcohol use. No illicit drug use. The patient uses the cane, but is otherwise independent with his ADLs. PHYSICAL EXAMINATION VITAL SIGNS: T-current 97.5, pulse 90, respiratory rate 16, blood pressure 170/95, saturating 93% on 2 L nasal cannula. CHEST: Shows decreased breath sounds bilaterally. CARDIOVASCULAR: Regular rate. No gallop. ABDOMEN: Soft, nontender, and nondistended. EXTREMITIES: Shows no evidence of edema. ASSESSMENT AND PLAN 1. New right subdural cerebrovascular accident. The patient is status post tPA is improving. 2. Hypertensive emergency. We are going to keep him on Cardene drip. We are going to slowly restart his oral medications per Neurology. Try to keep the blood pressure between [address] scan shows no obstructions of the vessel, therefore, we are going to see about getting an echocardiogram to rule out any intracardiac clot, so far the cardiac enzymes are negative. We will continue to monitor. We will observe in the unit, respiratory status appears stable. Thank you very much for this consult and allowing us to participate in the care of this patient. Please page me at [phone] if you have any questions. Dictated by... Radha Young/lauro TD: 08/12/2016 06:25 JOB #: [id number] CONSULTATION REPORT X Chase Marroquin MD X CONSULTATION REPORT
[~2016-08-10 04:37] MED LIST: COLACE PO; COREG3.125 MG PO; ELIMITE60 GM TOP; LIPITOR PO; LIPITOR40 MG PO; LISINOPRIL20 MG PO; LOPRESSOR PO; MILK OF MAGNESIA PO; NITROGLYCERIN0.4 MG SL; NITROGLYGERIN0.4 MG SL; PLAVIX PO; VICODIN PO; ZESTRIL40 MG PO
[2016-08-10 05:03] LABS: BASOPHIL# 0.1 X10e3 (0-0.3); BASOPHIL% 0.8 % (0-2.5); EOSINOPHIL# 0.2 X10e3 (0-0.7); EOSINOPHIL% 1.9 % (0.0-7.0); HEMATOCRIT 45.7 % (38.0-50.0); HEMOGLOBIN 15.4 gm/dL (13.0-16.0); LYMPHOCYTE# 2.4 X10e3 (1.0-3.5); LYMPHOCYTE% 25.8 % (17.0-45.0); MEAN CELL VOLUME 91.2 FL (83-96); MEAN CORPUSCULAR HEMOGLOBIN 30.8 PG (28-34); MEAN CORPUSCULAR HGB CONC 33.7 g/dL (30-36); MEAN PLATELET VOLUME 8.7 FL (6.5-11.5); MONOCYTE# 0.7 X10e3 (0-1.0); MONOCYTE% 7.9 % (3.0-12.0); NEUTROPHIL# 5.8 X10e3 (1.5-7.1); NEUTROPHIL% 63.6 % (40-75); PLATELET COUNT 257 X10e3 (140-420); RED BLOOD COUNT 5.01 X10e (3.90-5.60); RED CELL DISTRIBUTION WIDTH 14.9 % (11.0-15.5); WHITE BLOOD COUNT 9.2 X10e3 (4.0-10.5)
[2016-08-10 05:08] LABS: DIFF IND NO
[2016-08-10 05:23] LABS: POC - CKMB <1.0 ng/mL (0.0-7.9); POC - TROPONIN <0.05 ng/mL (<=0.05)
[2016-08-10 05:31] LABS: ALBUMIN SERUM 3.8 g/dL (3.5-5.0); ALKALINE PHOSPHATASE 67 U/L (32-92); ALT (SGPT) 14 U/L (10-40); AST (SGOT) 15 U/L (10-42); BILIRUBIN, DIRECT 0.1 mg/dL (0.0-0.2); BILIRUBIN,INDIRECT 0.3 mg/dL (0.0-0.9); BILIRUBIN,TOTAL 0.4 mg/dL (0.2-2.0); BLOOD UREA NITROGEN 19 mg/dL (9-23); BUN/CREATININE RATIO 15.83; CALCIUM SERUM 8.5 mg/dL (8.4-10.2); CARBON DIOXIDE 25 mmol/L (22-31); CHLORIDE 109 mmol/L (100-111); CREATININE SERUM 1.2 mg/dL (0.6-1.4); GLOM FILT RATE Estimated ABOVE60 mL/min (>60); GLUCOSE FASTING 111 mg/dL (70-110); POTASSIUM 3.7 mmol/L (3.5-5.1); PROTEIN TOTAL SERUM 6.9 g/dL (6.0-8.3); SODIUM 135 mmol/L (135-145)
[2016-08-10 05:44] LABS: PARTIAL THROMBOPLASTIN TIME 25.5 SECONDS (23.5-31.3)
[2016-08-10] MEDS ORDERED: AMLODIPINE BESYL5 MG PO (16:16)
[2016-08-11 06:10] LABS: BASOPHIL# 0.1 X10e3 (0-0.3); BASOPHIL% 0.7 % (0-2.5); EOSINOPHIL# 0.1 X10e3 (0-0.7); HEMATOCRIT 48.2 % (38.0-50.0); HEMOGLOBIN 16.2 gm/dL (13.0-16.0); LYMPHOCYTE# 2.1 X10e3 (1.0-3.5); MEAN CORPUSCULAR HEMOGLOBIN 30.6 PG (28-34); MEAN CORPUSCULAR HGB CONC 33.6 g/dL (30-36); MONOCYTE# 0.7 X10e3 (0-1.0); MONOCYTE% 8.1 % (3.0-12.0); NEUTROPHIL% 67.2 % (40-75); PLATELET COUNT 254 X10e3 (140-420)
[2016-08-11 06:15] LABS: DIFF IND NO
[2016-08-11 09:27] LABS: POC - CREATININE 1.42 mg/dL (0.64-1.27)
[2016-08-11] MEDS ORDERED: MR (10:09)
[2016-08-11 11:15] LABS: CHOLESTEROL 186 mg/dL (0-200); HDL CHOLESTEROL 38 mg/dL (29-75); LDL CHOLESTEROL 120 mg/dL (-130); LDL/HDL RATIO 3 RATIO (0-4); TRIGLYCERIDES 139 mg/dL (10-160)
[2016-08-11 11:36] LABS: FOLATE (FOLIC ACID) 6.7 ng/mL (>5.8)
[2016-08-12 09:01] LABS: ARTERIAL BLD GAS O2 SATURATION 92.5 % (90.0-100.0); ARTERIAL BLOOD GAS CARBOXY HB 0.8 %sat (0.0-9.0); ARTERIAL BLOOD GAS HCO3 22.4 mmol/L; ARTERIAL BLOOD GAS MET HB 0.7 %sat (0.0-2.0); ARTERIAL BLOOD GAS PCO2 36.4 mmHg (35.0-45.0); ARTERIAL BLOOD GAS pH 7.398 (7.350-7.450)
[2016-08-12 09:02] LABS: ARTERIAL BLOOD GAS ALLEN TEST NORMAL; ARTERIAL BLOOD GAS ART SITE RIGHT RADIAL; ARTERIAL BLOOD GAS DELIVERY ROOM AIR; ARTERIAL BLOOD GAS PO2 68.8 mmHg (80.0-100); ARTERIAL DRAW? YES
[2016-08-12] MEDS ORDERED: PANTOPRAZOLE SO40 MG PO (13:43)
[2016-08-12] MEDS ORDERED: B12 5,000 MCG1 EACH SL (13:44)
[2016-08-12] MEDS ORDERED: COUMADIN5 MG PO (13:44)
[2016-08-12] MEDS ORDERED: LOVENOX100 MG/ML INJ (13:46)
[2016-08-12] MEDS ORDERED: LISINOPRIL20 MG PO (13:51)
[2016-11-04] MEDS ORDERED: HYDROCHLOROTH12.5 MG PO (14:24)
[2016-11-04] MEDS ORDERED: B-12500 MCG PO (14:26)
[2016-11-04] MEDS ORDERED: LO-DOSE ASPIRIN81 M1 PO (14:27)
== END 2016-08-12 14:23 | disposition home health service (06) | DRG 62 ==
LOC: CED 04:37 → CEDOF 06:43 → CICCU3 09:00 → C3A PCU 08-12 03:30
PROVIDERS: Emergency Medicine; Family Medicine; Internal Medicine Cardiovascular Disease; Nurse Practitioner
PROC: 3E04317 Introduction of Other Thrombolytic into Central Vein, Percutaneous Approach (ICD-10-PCS; principal; 2016-08-10)
PROC: B32GYZZ Computerized Tomography (CT Scan) of Bilateral Vertebral Arteries using Other Contrast (ICD-10-PCS; 2016-08-10)
PROC: B328YZZ Computerized Tomography (CT Scan) of Bilateral Internal Carotid Arteries using Other Contrast (ICD-10-PCS; 2016-08-10)
PROC: B24BZZ4 Ultrasonography of Heart with Aorta, Transesophageal (ICD-10-PCS; 2016-08-12)
DX: I63.9 Cerebral infarction, unspecified (principal); G81.94 Hemiplegia, unspecified affecting left nondominant side; F05 Delirium due to known physiological condition; I16.1 Hypertensive emergency; I10 Essential (primary) hypertension; Z91.19 Patient's noncompliance with other medical treatment and regimen; Z91.14 Patient's other noncompliance with medication regimen; R29.706 NIHSS score 6; I70.0 Atherosclerosis of aorta; I25.10 Atherosclerotic heart disease of native coronary artery without angina pectoris; I25.2 Old myocardial infarction; F17.210 Nicotine dependence, cigarettes, uncomplicated; F41.9 Anxiety disorder, unspecified; F40.01 Agoraphobia with panic disorder; I49.3 Ventricular premature depolarization
CPT/HCPCS: 36415; 36600; 70450; 70496; 70498; 70551; 71010; 80048; 80061; 80076; 82553; 82565; 82607; 82746; 82803; 82947; 83036; 84443; 84484; 85025; 85610; 85652; 85730; 86140; 92523-GN; 92610; 93005; 93312; 94760; 96374; 97116; 97162; 97166; 99291; G8978-GP; G8979-GP; G8987-GO; G8988-GO; G8996-GN; G8997-GN; G8998-GN; J2060; J2175; J2250; J2550; J2997; J3010; J3230; Q9967

== ENCOUNTER 2016-10-01 10:36 | Emergency (ER) | payer OTHER ==
--- NOTE | ~2016-10-01 | CR211 ---
[facility] A Service of [facility] RADIOLOGY TEXT RESULTS PATIENT: RITA PASTRANA LOCATION: [facility] : 62 UNIT #: [id number] AGE: [address]: Wai Nesbitt MD SEX: M ORDER DR: [id number] [facility] [address] [place], [place] [address] [id number] E MR#: [id number] #: [id number] NAME: RITA PASTRANA : 1960 SEX: M STUDY DATE/TIME: 10/01/2016 10:46 UNIT: [facility] ROOM: STUDY DESCRIPTION: CR Ribs Uni 2 View W PA Ch Rt Attending Physician: Wai Nesbitt M.D. Referring Physician: Libra Crawley M.D. Ordering Physician: [facility] Primary Care Physician: Libra Crawley M.D. MEDICAL IMAGING REPORT This report is preliminary unless electronic signature is present EXAM Chest and right ribs 10/01 INDICATIONS Right-side rib pain after fall 1 week ago. TECHNIQUE PA chest x-ray was obtained in addition to a right rib series. COMPARISON STUDIES Comparison made with chest x-ray from 08/12/2016. FINDINGS Cardiac and mediastinal contours are normal. The lungs are clear, except for some mild left base atelectasis. There is no pneumothorax. There is apparent nondisplaced right lateral seventh rib fracture. Correlate with site of tenderness. No other rib fractures are seen. IMPRESSION Apparent subtle nondisplaced right lateral seventh rib fracture. Correlate with site of tenderness. Exam is otherwise negative, except for some mild atelectasis at the left base. No pneumothorax. Dictated by... Valentín Bell Jr., M.D. THIS IS AN ELECTRONICALLY VERIFIED REPORT Valentín Bell Jr., M.D. at 10/01/2016 2:30 PM RLK/pcl [facility] A Service of [facility] RADIOLOGY TEXT RESULTS PATIENT: RITA PASTRANA LOCATION: [facility] : 62 UNIT #: [id number] AGE: [address]: Wai Nesbitt MD SEX: M ORDER DR: TD: 10/01/2016 11:58 JOB #: [id number] MEDICAL IMAGING REPORT Page 1 of 1 COPY
[~2016-10-01 10:36] MED LIST changes: +AMLODIPINE BESYL5 MG PO; +B12 5,000 MCG1 EACH SL; +COUMADIN5 MG PO; +LOVENOX100 MG/ML INJ; +MR; +PANTOPRAZOLE SO40 MG PO
[2016-11-04] MEDS ORDERED: HYDROCHLOROTH12.5 MG PO (14:24)
[2016-11-04] MEDS ORDERED: B-12500 MCG PO (14:26)
[2016-11-04] MEDS ORDERED: LO-DOSE ASPIRIN81 M1 PO (14:27)
== END 2016-10-01 11:37 | disposition home or self-care (01) ==
LOC: CED 10:36
DX: S22.31XA Fracture of one rib, right side, initial encounter for closed fracture (principal); I10 Essential (primary) hypertension; F17.200 Nicotine dependence, unspecified, uncomplicated; Z79.899 Other long term (current) drug therapy; S80.212A Abrasion, left knee, initial encounter; W18.30XA Fall on same level, unspecified, initial encounter; Y92.9 Unspecified place or not applicable
CPT/HCPCS: 71101; 90471; 90715; 96372; 99283; J1885

== ENCOUNTER → 2016-11-14 | Day surgery (SDC) | payer OTHER ==
[~2016-11-14] MED LIST changes: +B-12500 MCG PO; +HYDROCHLOROTH12.5 MG PO; +LO-DOSE ASPIRIN81 M1 PO
--- NOTE | ~2016-11-14 | OR ---
Unit #: [id number] #: [id number] Patient: RITA PASTRANA [id number] [address] [place], [place] [address] [id number] O MR#: [id number] NAME: RITA PASTRANA ROOM: Date of Procedure: 11/14/2016 Admission Date: 11/14/2016 Surgeon: Gilmer Warner Jr., M.D. : 1960 Attending Physician: Gilmer Warner Jr., M.D. Primary Care Physician: Libra Crawley M.D. OPERATIVE REPORT INDICATION FOR PROCEDURE The patient is a 56-year-old white male, who has a known past history for colon cancer. He has had no previous colonoscopy. He is brought in this time at his request for screening colonoscopy to rule out pathology. The patient understands the procedure including the risks, including that of perforation and bleeding, and consents. He has had his prep at home. PREOPERATIVE DIAGNOSES Desired screening colonoscopy to rule out pathology, strong family history of colon cancer. POSTOPERATIVE DIAGNOSES Diverticulosis of the left colon with numerous polyps of the rectosigmoid, sigmoid, transverse colon, and cecum. ANESTHESIA MAC anesthesia. PROCEDURE PERFORMED Flexible colonoscopy to the cecum with snare and cold biopsy forceps. Biopsies performed. FINDINGS Flexible fiberoptic colonoscopy to the cecum with snare polypectomies, 4 polyps in the sigmoid at approximately 30 to 35 cm. There were 2 small polyps in the rectosigmoid at approximately 15 cm that were biopsied. There was a small polyp in the transverse colon near the hepatic flexure and 2 small polyps in the cecum that were biopsied with cold biopsy forceps without bleeding. DESCRIPTION OF PROCEDURE The patient was positioned in Marie position with left side down. After being given MAC anesthesia, digital rectal examination was performed, which revealed no palpable mass or tenderness. No blood or stool in the rectal ampulla. Prostate was normal by palpation. The Olympus colonoscope was advanced through the anal canal up the rectum and retroflexed down to the area of the anorectal region. There was no evidence of any fissures, no significant internal hemorrhoids. The scope was then straightened at approximately 15 cm. In the rectosigmoid area, there were 2 small polyps, which were biopsied with the cold biopsy forceps without significant bleeding. The scope was then advanced up in the sigmoid and at approximately 30 to 35 cm, there were 4 pedunculated Unit #: [id number] #: [id number] Patient: RITA PASTRANA polyps approximately 0.5 to 0.75 cm in diameter. These were all snared and removed with the scope each time. The bases were checked, there was no evidence of any bleeding, no evidence any extensive burn. The scope was then advanced up into the proximal sigmoid and descending colon areas where a few diverticula without evidence of diverticulitis. The scope was then advanced around the splenic flexure and the transverse colon over the area of the hepatic flexure where there was a small polyp which was biopsied with cold biopsy forceps. The scope was then advanced around the hepatic flexure and ascending colon, down in the area of the cecum. The light from the tip of the scope was seen transilluminating through right lower quadrant abdominal wall area. Multiple attempts advancing the scope up the distal ileum were unsuccessful, although the ileocecal valve was visualized. There were 2 small polyps just distal to the cecum. These were biopsied with the cold biopsy forceps without bleeding. The scope was slowly removed. There were no tumors except for numerous polyps, no cancerous appearing polyps, no cancer, no AVMs, no evidence of any colitis or acute diverticulitis. The caliber of the colon appeared normal throughout without evidence of narrowing or obstruction. The scope was removed. The patient tolerated the procedure well and discharge in satisfactory condition. Dictated by... Gilmer Warner Jr. MAmanda ZAMORA/lauro TD: 11/15/2016 04:00 JOB #: [id number] OPERATIVE REPORT Page 1 of 1 X Gilmer Warner MD X PROCEDURE OPERATIVE NOTE
== END | disposition home or self-care (01) ==
LOC: COPS 05:22
DX: Z12.11 Encounter for screening for malignant neoplasm of colon (principal); D12.5 Benign neoplasm of sigmoid colon; D12.3 Benign neoplasm of transverse colon; D12.0 Benign neoplasm of cecum; K62.1 Rectal polyp; K57.30 Diverticulosis of large intestine without perforation or abscess without bleeding; J44.9 Chronic obstructive pulmonary disease, unspecified; F17.210 Nicotine dependence, cigarettes, uncomplicated; I25.2 Old myocardial infarction; I10 Essential (primary) hypertension; M19.90 Unspecified osteoarthritis, unspecified site; E78.00 Pure hypercholesterolemia, unspecified; Z98.890 Other specified postprocedural states; Z79.01 Long term (current) use of anticoagulants; Z79.82 Long term (current) use of aspirin; Z79.899 Other long term (current) drug therapy; Z86.73 Personal history of transient ischemic attack (TIA), and cerebral infarction without residual deficits; Z80.0 Family history of malignant neoplasm of digestive organs; Z85.038 Personal history of other malignant neoplasm of large intestine
CPT/HCPCS: 88305; J2250

== ENCOUNTER 2017-01-19 18:52 | Emergency (ER) | payer OTHER ==
[~2017-01-19] VITALS: Ht 185.4 cm; Wt 113.4 kg
--- NOTE | ~2017-01-19 | CT4 ---
[facility] A Service of [facility] & [facility] RADIOLOGY TEXT RESULTS PATIENT: RITA PASTRANA LOCATION: [facility] : 62 UNIT #: [id number] AGE: [address]: Wai Nesbitt MD SEX: M ORDER DR: [id number] [facility] [address] [place], [place] [address] [id number] E MR#: [id number] Acc #: [id number] NAME: RITA PASTRANA : 1960 SEX: M STUDY DATE/TIME: 01/19/2017 20:30 UNIT: [facility] ROOM: STUDY DESCRIPTION: CT Abd and Pelv Wo Cont Attending Physician: Wai Nesbitt M.D. Ordering Physician: Wai Nesbitt M.D. Primary Care Physician: Libra Crawley M.D. MEDICAL IMAGING REPORT This report is preliminary unless electronic signature is present EXAM Abdomen and pelvis CT no contrast, 01/19/2017 INDICATION 56-year-old male with right-sided abdominal pain extending into the low back and groin pain, nausea today. History of kidney stones. TECHNIQUE Noncontrast abdomen and pelvis CT was performed. We have no comparisons. This CT exam was performed with one or more of the following radiation dose reduction techniques: automatic exposure control, adjustment of mA and/or kV according to patient size, and iterative reconstruction. FINDINGS CT ABDOMEN: Exam markedly degraded by noncontrast technique. Included lung bases clear. No pericardial effusion. Aorta demonstrates no aneurysm. There is ectasia of the infrarenal abdominal aorta. Spleen unremarkable. There is hyperplasia of the left adrenal gland. There is a benign right adrenal adenoma measuring 17 mm. Pancreas unremarkable, gallbladder unremarkable. Liver demonstrates 2 or 3 low-attenuation lesions within the dome and right hepatic lobe. Absent any history of malignancy or underlying hepatic dysfunction these are most likely benign and probably represent tiny cysts. They could be definitively characterized or assessed with multiphase protocol MRI or CT with and without contrast if clinically desired or warranted on a nonemergent basis. The left kidney is normal. There is severe hydronephrosis and there is inflammatory change of the right kidney secondary to an obstructing 10mm x 8 mm stone at the right UPJ level. Urologic referral is recommended given [facility]. [facility] A Service of [facility] RADIOLOGY TEXT RESULTS PATIENT: RITA PASTRANA LOCATION: [facility] : 62 UNIT #: [id number] AGE: [address]: Wai Nesbitt MD SEX: M ORDER DR: the size of the stone. There is stranding in the right perirenal space, distal ureter decompressed. CT PELVIS: Bladder and prostate are unremarkable. No drainable fluid collection in the pelvis. Intermittent diverticulosis. Appendix normal. Inguinal canal is within normal limits. Osseous structures demonstrate degenerative change in the lower lumbar spine. IMPRESSION 1. A 10 mm x 8 mm obstructing stone at the right UPJ level. Severe right-sided hydronephrosis. Urologic referral recommended. 2. Benign right adrenal adenoma measures 17 mm. Hyperplasia of the left adrenal gland. 3. Too small to characterize but likely benign tiny lesions within the liver. See discussion above. 4. Appendix normal. 5. Diverticulosis. Dictated by... Thanh Stafford M.D. THIS IS AN ELECTRONICALLY VERIFIED REPORT Thanh Stafford M.D. at 01/20/2017 11:28 AM NIMO/keyur TD: 01/20/2017 02:51 JOB #: [id number] MEDICAL IMAGING REPORT Page 1 of 1 COPY
[2017-01-19 19:20] LABS: BASOPHIL# 0.1 X10e3 (0-0.3); BASOPHIL% 0.9 % (0-2.5); EOSINOPHIL# 0.1 X10e3 (0-0.7); EOSINOPHIL% 0.6 % (0.0-7.0); HEMATOCRIT 47.6 % (38.0-50.0); LYMPHOCYTE# 2.5 X10e3 (1.0-3.5); LYMPHOCYTE% 21.8 % (17.0-45.0); MEAN CORPUSCULAR HEMOGLOBIN 30.5 PG (28-34); MEAN CORPUSCULAR HGB CONC 33.5 g/dL (30-36); MEAN PLATELET VOLUME 8.5 FL (6.5-11.5); MONOCYTE# 0.7 X10e3 (0-1.0); MONOCYTE% 6.3 % (3.0-12.0); NEUTROPHIL# 8.1 X10e3 (1.5-7.1); NEUTROPHIL% 70.4 % (40-75); PLATELET COUNT 325 X10e3 (140-420); RED BLOOD COUNT 5.23 X10e (3.90-5.60); RED CELL DISTRIBUTION WIDTH 14.9 % (11.0-15.5); WHITE BLOOD COUNT 11.5 X10e3 (4.0-10.5)
[2017-01-19 19:23] LABS: DIFF IND NO
[2017-01-19 19:45] LABS: ALBUMIN SERUM 4.2 g/dL (3.5-5.0); BILIRUBIN, DIRECT 0.1 mg/dL (0.0-0.2); BILIRUBIN,INDIRECT 0.8 mg/dL (0.0-0.9); BILIRUBIN,TOTAL 0.9 mg/dL (0.2-2.0); BUN/CREATININE RATIO 11.66; CALCIUM SERUM 9.1 mg/dL (8.4-10.2); CREATININE SERUM 1.2 mg/dL (0.6-1.4); GLOM FILT RATE Estimated 67.7 mL/min (>60); POTASSIUM 3.4 mmol/L (3.5-5.1); PROTEIN TOTAL SERUM 7.5 g/dL (6.0-8.3)
[2017-01-19 20:24] LABS: POC - CKMB 1.5 ng/mL (0.0-7.9); POC - TROPONIN <0.05 ng/mL (<=0.05)
[2017-01-19 20:33] LABS: INR 2.3; PARTIAL THROMBOPLASTIN TIME 39.8 SECONDS (23.5-31.3)
[2017-01-19 21:44] LABS: URINE SOURCE CLEAN CATCH
[2017-01-19 21:48] LABS: URINE APPEARANCE CLEAR; URINE BILIRUBIN NEG (NEG); URINE BLOOD 3+ (NEG); URINE COLOR DK YELLOW; URINE GLUCOSE NEG (NEG); URINE KETONE TRACE (NEG); URINE LEUKOCYTE ESTERASE NEG (NEG); URINE NITRATE NEG (NEG); URINE PH 5.5 (5-8); URINE PROTEIN 2+ (NEG); URINE SPECIFIC GRAVITY 1.024 (1.003-1.035)
[2017-01-19 21:50] LABS: URINE BACTERIA AUWI NEG (NEGATIVE); URINE SQUAMOUS EPITHELIAL CELL OCC /[HPF]
[2017-01-19 21:57] LABS: CULTURE INDICATED? NO
== END 2017-01-19 22:50 | disposition home or self-care (01) ==
LOC: CED 18:52
PROVIDERS: Emergency Medicine
DX: N13.2 Hydronephrosis with renal and ureteral calculous obstruction (principal); I10 Essential (primary) hypertension; F17.210 Nicotine dependence, cigarettes, uncomplicated; Z86.73 Personal history of transient ischemic attack (TIA), and cerebral infarction without residual deficits; Z79.01 Long term (current) use of anticoagulants; Z79.899 Other long term (current) drug therapy
CPT/HCPCS: 36415; 74176; 80048; 80076; 81003; 82150; 82553; 83690; 84484; 85025; 85610; 85730; 96361; 96374; 96375; 99284; J1170; J2405